=== PATIENT | male | born 1960 | race Caucasian/White ===

== ENCOUNTER 2021-04-08 15:46 | Inpatient (IN) | payer MEDICARE ==
[~2021-04-08] VITALS: Ht 167.6 cm; Wt 76.2 kg
[2021-04-08] MEDS ORDERED: ONDANSETRON HCL8 MG PO (20:57)
[2021-04-08] MEDS ORDERED: CETIRIZINE HCL10 MG PO (20:58)
[2021-04-08] MEDS ORDERED: PANTOPRAZOLE SO20 MG PO (20:58)
[2021-04-08] MEDS ORDERED: BUSPIRONE HCL5 MG PO (20:59)
[2021-04-08] MEDS ORDERED: SIMVASTATIN20 MG PO (20:59)
[2021-04-08] MEDS ORDERED: NITROGLYCERIN6.5 MG PO (21:00)
[2021-04-08] MEDS ORDERED: METOPROLOL TART50 MG PO (21:01)
[2021-04-08] MEDS ORDERED: AMLODIPINE BESYL5 MG PO (21:02)
[2021-04-08] MEDS ORDERED: LISINOPRIL10 MG PO (21:08)
[2021-04-09 04:56] LABS: HEMOGLOBIN 13.1 gm/dl (14.0-17.5); RED BLOOD COUNT 4.41 M/UL (4.20-5.50); WHITE BLOOD COUNT 3.8 K/UL (4.5-11.0)
[2021-04-09] MEDS ORDERED: CLOPIDOGREL75 MG PO (09:23)
[2021-04-10 03:05] LABS: HEMOGLOBIN 12.5 gm/dl (14.0-17.5); RED BLOOD COUNT 4.26 M/UL (4.20-5.50)
[2021-04-10 03:08] LABS: WHITE BLOOD COUNT 2.3 K/UL (4.5-11.0)
[2021-04-10 03:25] LABS: BUN/CREATININE RATIO 34 (0-10)
--- NOTE | 2021-04-10 14:00 | NUR ---
NO CHANGE FROM PREVIOUS ASSESSMENT
[2021-04-11 05:08] LABS: HEMOGLOBIN 12.2 gm/dl (14.0-17.5); RED BLOOD COUNT 4.15 M/UL (4.20-5.50)
[2021-04-11 05:14] LABS: WHITE BLOOD COUNT 5.9 K/UL (4.5-11.0)
[2021-04-11 07:14] LABS: BUN/CREATININE RATIO 38 (0-10)
[2021-04-11] MEDS ORDERED: RANOLAZINE ER500 MG PO (16:52)
[2021-04-12 04:07] LABS: BUN/CREATININE RATIO 35 (0-10)
[2021-04-13] MEDS ORDERED: LEVOFLOXACIN500 MG PO (15:58)
[2021-04-13] MEDS ORDERED: PROAIR HFA8.5 GM INH (15:58)
[2021-04-14 02:56] LABS: BUN/CREATININE RATIO 24 (0-10)
--- NOTE | 2021-04-14 13:02 | NUR ---
PT o2 sat on room air = 85%
[2021-04-15 05:13] LABS: HEMOGLOBIN 13.7 gm/dl (14.0-17.5); RED BLOOD COUNT 4.59 M/UL (4.20-5.50); WHITE BLOOD COUNT 8.9 K/UL (4.5-11.0)
[2021-04-15 06:39] LABS: BUN/CREATININE RATIO 25 (0-10)
== END 2021-04-15 16:28 | disposition home or self-care (01) | DRG 177 ==
LOC: PROG CARE 20:00
PROVIDERS: Internal Medicine; ADMIT Internal Medicine
PROC: 3E0333Z Introduction of Anti-inflammatory into Peripheral Vein, Percutaneous Approach (ICD-10-PCS; principal; 2021-04-09)
PROC: 8E0ZXY6 Isolation (ICD-10-PCS; 2021-04-09)
PROC: XW033E5 Introduction of Remdesivir Anti-infective into Peripheral Vein, Percutaneous Approach, New Technology Group 5 (ICD-10-PCS; 2021-04-10)
PROC: XW13325 Transfusion of Convalescent Plasma (Nonautologous) into Peripheral Vein, Percutaneous Approach, New Technology Group 5 (ICD-10-PCS; 2021-04-10)
DX: U07.1 COVID-19 (principal); J12.82 Pneumonia due to coronavirus disease 2019; J96.01 Acute respiratory failure with hypoxia; I21.4 Non-ST elevation (NSTEMI) myocardial infarction; N17.9 Acute kidney failure, unspecified; E78.5 Hyperlipidemia, unspecified; I25.10 Atherosclerotic heart disease of native coronary artery without angina pectoris; I10 Essential (primary) hypertension; R00.1 Bradycardia, unspecified; T38.0X5A Adverse effect of glucocorticoids and synthetic analogues, initial encounter; Z95.1 Presence of aortocoronary bypass graft; Z88.6 Allergy status to analgesic agent; Z88.8 Allergy status to other drugs, medicaments and biological substances; Z90.49 Acquired absence of other specified parts of digestive tract; Z88.1 Allergy status to other antibiotic agents; Z88.0 Allergy status to penicillin; Z87.891 Personal history of nicotine dependence; Z80.1 Family history of malignant neoplasm of trachea, bronchus and lung; Z82.49 Family history of ischemic heart disease and other diseases of the circulatory system
CPT/HCPCS: 36415; 80048; 80053; 80202; 81001; 82550; 82553; 82570; 83605; 84300; 84484; 85025; 86900; 86901; 86927; 87040; 87070; 87205; 94760; 97162; J1100; J1644; J1956; J3370; J7030; J7070; Q0161